=== PATIENT | male | born 1970 | race Caucasian/White ===

== ENCOUNTER 2022-07-25 07:41 | Day surgery (SDC) | payer OTHER ==
[2022-07-25] MEDS ORDERED: Depo-Medrol 40 MG/ML IM ONE (07:42)
[2022-07-25] MEDS ORDERED: BUPIVACAINE 0.5% VIAL IJ ONE (07:42)
[2022-07-25 08:26] LABS: Hematocrit 44.5 % (42-50); Hemoglobin 14.8 g/dL (12.5-18.0); Mean Cell Volume 94.1 fL (78-100); Mean Corpuscular Hemoglobin 31.3 pg (26-32); Mean Corpuscular Hgb Concent. 33.3 g/dL (32-36); Mean Platelet Volume 10.3 fL (7.5-11.0); Platelet Count 238 x10^3/uL (150-450); Red Blood Count 4.73 x10^6/uL (4.1-5.6); Red Cell Distribution Width 12.1 % (11.5-14.0); White Blood Count 7.7 x10^3/uL (4.0-10.5)
[2022-07-25 09:38] LABS: ANION GAP 10.3 MEQ/L (5-15); BLOOD UREA NITROGEN 10 mg/dL (9-20); CHLORIDE 101 mmol/L (98-107); Carbon Dioxide 30 mmol/L (22-30); Cholesterol 165 mg/dL (50-200); Creatinine 1 1.17 mg/dL (0.66-1.25); EST GLOMERULAR FILTRATION RATE > 60.0 ML/MIN; GLUCOSE,RANDOM 125 mg/dL (74-106); HDL CHOLESTEROL 26 mg/dL (40-60); LDL, DIRECT 102 mg/dL (30-100); Potassium 4.2 mmol/L (3.5-5.1); Risk Ratio 6.3; SGPT/ALT 30 U/L (0-50); SODIUM 137 mmol/L (137-145); TRIGLYCERIDE 217 mg/dL (30-150); Testosterone 280 ng/dL (71.8-623); Uric Acid 5.8 mg/dL (3.5-7.2); Vitamin B12 740 pg/mL (239-931)
[2022-07-25] MEDS ORDERED: DIPRIVAN 200 MG/20 ML IV ONE (09:44)
[2022-07-25] MEDS ORDERED: Lactated Ringers 1,000 ML IV ONE (10:45)
--- NOTE | 2022-07-25 19:54 | XRAY ---
Indication: Left shoulder injection. Intraoperative fluoroscopy provided for 13 seconds. 2 digital spot image submitted for interpretation demonstrates needle tip projecting over the left glenohumeral joint superiorly. Small amount of contrast injected for needle tip placement. Correlate with intraoperative findings/report.
--- NOTE | 2022-07-25 20:00 | XRAY ---
13 seconds fluoroscopy time in surgery for intra-articular injection of the left shoulder.
== END 2022-07-25 10:09 | disposition home or self-care (01) ==
LOC: SDC-PAIN 07:41
PROVIDERS: ATTEND Psychiatry & Neurology Pain Medicine
DX: M19.012 Primary osteoarthritis, left shoulder (principal); Z79.899 Other long term (current) drug therapy; I10 Essential (primary) hypertension
CPT/HCPCS: 20550; 20610; 36415; 73030; 77002; 80051; 80061; 82565; 82607; 82947; 83036; 83721; 84403; 84439; 84443; 84460; 84520; 84550; 85027; J1030; J2704; Q9966

== ENCOUNTER 2024-01-23 12:33 | Emergency (ER) | payer OTHER ==
[2024-01-23 12:59] VITALS: RESP 18; TEMP 98.5; O2SAT 100
--- NOTE | 2024-01-23 14:12 | ERPHSYRPT ---
- History of Present Illness Time Seen by Provider: 01/23/24 12:58 Source: patient Exam Limitations: no limitations Patient Subjective Stated Complaint: C/O boil to right inner buttocks "near tailbone". States he noticed it 3-4 days ago and it is getting worse. Triage Nursing Assessment: Patient ambulated back to ER without difficulties. He is alert and oriented. Skin tone normal. BLACK WNL. Hard red area noted to right inner buttocks where area of pain is reported. Small pinpoint pustule present. Physician History: 54-year-old male with history of coronary artery disease status post stenting, remote history of MRSA, multiple abscesses in the past needing I&D presented in the ER with complaint of right inner side of buttock for the last 3 to 4 days with progressive worsening. Patient reports it was initially pea-sized and gradually increased to the size of a golf ball now moderate to severe sharp pain, making it difficult to ambulate and even sit. No fever or chills reported. Denies any drainage. Allergies/Adverse Reactions: sulfamethoxazole [From Bactrim] Allergy (Verified 01/23/24 12:48) trimethoprim [From Bactrim] Allergy (Verified 01/23/24 12:48) Home Medications: Atorvastatin Calcium [Lipitor 40Mg] 40 mg PO DAILY 01/13/18 [History] Clopidogrel Bisulfate [PLAVIX 75 MG Tablet] 75 mg PO DAILY 01/13/18 [History] Nitroglycerin 0.4 mg Tablet [Nitrostat 0.4 MG Tablet] 0.4 mg SL Q5MIN PRN MR X 3 PRN 01/13/18 [History] Aspirin EC 81 mg [Ecotrin 81 mg] 81 mg PO DAILY 01/23/24 [History] Losartan Potassium 50 mg [Cozaar 50 MG] 100 mg PO DAILY 01/23/24 [History] Hx Tetanus, Diphtheria Vaccination/Date Given: Yes Hx Influenza Vaccination/Date Given: Yes Hx Pneumococcal Vaccination/Date Given: No Immunizations Up to Date: Yes Travel Risk - International Travel Have you traveled outside of the country in past 3 weeks: No - Emerging Infectious Disease Are you exhibiting symptoms associated with any current EIDs: No - Review of Systems Constitutional: No Symptoms Ears, Nose, & Throat: No Symptoms Respiratory: No Symptoms Cardiac: No Symptoms Abdominal/Gastrointestinal: No Symptoms Skin: Induration, Skin Lesions Neurological: No Symptoms Endocrine: No Symptoms - Past Medical History Pertinent Past Medical History: Yes Cardiac History: Coronary Artery Disease, High Cholesterol, Hypertension, Myocardial Infarction (OR) Endocrine Medical History: Diabetes Type II GI Medical History: GERD Other Medical History: DEBI, 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 - Past Surgical History Past Surgical History: Yes Cardiac: Cardiac Catheterization, Cardiac Stent Musculoskeletal: Orthopedic Surgery - Social History Smoking Status: Current every day smoker How long have you smoked: 18 Exposure to second hand smoke: Yes Drug Use: none Patient Lives Alone: No - Nursing Vital Signs Nursing Vital Signs: Initial Vital Signs Temperature 98.5 F 01/23/24 12:51 Pulse Rate 72 01/23/24 12:51 Respiratory Rate 18 01/23/24 12:51 Blood Pressure 159/80 01/23/24 12:51 O2 Sat by Pulse Oximetry 100 01/23/24 12:51 Pain Scale Pain Intensity 8 - Physical Exam General Appearance: no apparent distress Eye Exam: PERRL/EOMI Neck Exam: normal inspection, full range of motion Respiratory Exam: normal breath sounds, lungs clear Cardiovascular Exam: regular rate/rhythm, normal heart sounds Gastrointestinal/Abdomen Exam: soft, normal bowel sounds, No tenderness Male Genitalia Exam: other (5 x 4 cm area of induration with firm consistency mostly with a small area of fluctuation in the center. Very tender to touch. Does not approach midline) Back Exam: normal inspection, normal range of motion Extremity Exam: normal inspection, normal range of motion Neurologic Exam: alert, oriented x 3, cooperative Skin Exam: normal color SpO2 Interpretation: normal SpO2: 100 O2 Delivery: Room Air Procedures - Incision and Drainage Time of Procedure: 13:50 Timeout: Performed Site: 5 x 4 cm right inner buttock Anesthesia: 1% Lidocaine cc's of anesthesia: 5 Blade Size: 10 I & D Procedure: betadine prep, culture obtained, gauze wick placed Results: moderate amount pus Progress: Tolerated procedure very well. Ordered Tests: Active Orders 24 hr Category Date Time Status CULTURE,WOUND Stat Lab 01/23/24 13:47 Ordered - Progress Progress: improved Progress Note: 01/23/24 14:11 54-year-old with history of MRSA is evaluated for right inner buttock swelling. Has fluctuation with firm swelling around. After informed consent I&D is done, iodoform packing placed in. Started on clindamycin. Outpatient follow-up recommended. Discussed signs symptoms of worsening needing return to ER which he seems understanding. Stable for discharge. Counseled pt/family regarding: need for follow-up Medical Desision Making - Diagnostic Testing Diagnostic test were ordered, analyzed, and reviewed by me: Yes - Risk of complications The pt has a mod risk of morbidity or mortality based on: Need for prescription drug management, Need for minor surgical intervention in patient with know risk factors - Departure Departure Disposition: Home Clinical Impression: Abscess of buttock, right Condition: Stable Critical Care Time: No Referrals: QIAN BARBA [Primary Care Provider] - Follow up with PCP 1 day Instructions: Abscess Incision and Drainage ED Additional Instructions: Take pain medications as needed. Sitz bath. Follow-up with primary care for reevaluation. Daily packing change. Return to ER for increasing swelling discharge/fever chills etc. Prescriptions: clindamycin HCL [Clindamycin HCl] 300 mg PO QID 7 Days #28 cap
[2024-01-23] MEDS ORDERED: CLEOCIN 150 MG CAPSULE ONE (14:14)
[2024-01-23] MEDS: CLEOCIN 150 MG CAPSULE PO ONE (14:15)
[2024-01-23 14:21] VITALS: BP 115/90; PULSE 76
== END 2024-01-23 14:26 | disposition home or self-care (01) ==
LOC: ED 12:33
DX: L02.31 Cutaneous abscess of buttock (principal); E78.5 Hyperlipidemia, unspecified; I10 Essential (primary) hypertension; E11.9 Type 2 diabetes mellitus without complications; Z79.02 Long term (current) use of antithrombotics/antiplatelets; Z79.899 Other long term (current) drug therapy; Z72.0 Tobacco use
CPT/HCPCS: 10060; 87070; 87077; 87186; 99282; A9270-GY